=== PATIENT | male | born 1955 | race Caucasian/White ===

== ENCOUNTER → 2017-10-04 | Outpatient (CLI) | payer OTHER ==
[~2017-10-04] MED LIST: GLIMEPIRIDE2 MG PO; IOPAMIDOL 370 MG/ML 200 ML INFUS..BTL INJ ONE; LISINOPRIL10 MG PO; SODIUM CHLORIDE 0.9% 50ML 50 ML ONE
[2017-10-04 08:08] LABS: BLOOD UREA NITROGEN 16 mg/dL (7-26); BUN/CREATININE RATIO 14 (6-25); CREATININE, SERUM 1.15 mg/dL (0.72-1.25); EST GLOMERULAR FILTRATION RATE > 60 ML/MIN (60-)
--- NOTE | 2017-10-04 09:40 | Diagnostic Imaging Report ---
PROCEDURE:CT ANGIOGRAPHY UPPER EXTREMITY WITHOUT AND WITH CONTRAST COMPARISON:None. INDICATIONS:LEFT SUBCLAVIAN STENOSIS TECHNIQUE:After obtaining the patient's consent, CT images were obtained without and with non-ionic intravenous contrast material. Multi-planar reformatted/3-D images were created to optimize visualization of vascular anatomy. CONTRAST:Isovue 370 (100 cc) was administered. FINDINGS: Scattered atherosclerotic calcifications are present in the thoracic and abdominal aorta and great vessels. Visualized portions of the right brachiocephalic, right common carotid and subclavian arteries are patent. Atherosclerotic calcifications are present at the origin of the left subclavian artery. There is calcified and non-calcified plaque at the proximal left subclavian artery near the origin leading to moderate to severe focal stenosis on series 3, images 149-151. The left axillary, brachial, radial and ulnar arteries are patent. The interosseous artery is partially opacified proximally but not opacified distally. Limited evaluation of the hand vasculature due to bolus timing. Arterial supply is patent to the proximal digital arteries but not opacified distally. No acute bony abnormalities. Spinal stimulator device is present in the thoracic spine, incompletely evaluated. S shaped scoliosis of the thoracolumbar spine. CONCLUSION: Atherosclerotic changes of the aorta and great vessels with focal moderate to severe stenosis of the left subclavian artery near the origin. Patent arteries in the left arm. Dictated by: MARIA TERESA GORDON M.D. on 10/04/2017 at 9:45 Electronically approved by: MARIA TERESA GORDON M.D. on 10/04/2017 at 9:45
== END ==
LOC: CT 07:24
PROVIDERS: ATTEND Internal Medicine Interventional Cardiology
DX: I77.9 Disorder of arteries and arterioles, unspecified (principal)
CPT/HCPCS: 36415; 73206; 82565; 84520; Q9967

== ENCOUNTER → 2018-08-13 | Day surgery (SDC) | payer OTHER ==
[2018-08-13] VITALS (8 sets, daily range): BP systolic 112–152; BP diastolic 61–71
[~2018-08-13] VITALS: Ht 180.3 cm; Wt 88.5 kg
[~2018-08-13] MED LIST changes: +ASPIR 8181 MG PO; +ASPIRIN 325 MG TAB ONE; +BENICAR20 MG PO; +FENTANYL CITRATE/PF 100MCG/2 ML INJ ONE; +GABAPENTIN300 MG PO; +HEPARIN SOD (PORCINE) 1000 UNIT/ML 30ML ONE; +HEPARIN SOD/SOD CHLORIDE 2,000 ML ONE; +IOPAMIDOL 300MG/ML 100 ML INFUS..BTL IV ONE; -IOPAMIDOL 370 MG/ML 200 ML INFUS..BTL INJ ONE; +JARDIANCE PO; +KRILL OIL500 MG PO; +LIDOCAINE HCL 2% LOCAL 20 ML VIAL ONE; +MIDAZOLAM HCL 2 MG/2 ML VIAL ONE; +NITROGLYCERIN/D5W 200 MCG/ML 250 ML ONE; +SODIUM CHLORIDE 0.9% 1000ML 1,000 ML ONE; -SODIUM CHLORIDE 0.9% 50ML 50 ML ONE; +TICAGRELOR 90 MG TABLET ONE
--- OUTSIDE RECORDS SUMMARY | 2018-08-13 07:00 | XMS REPORT ---
Author Author [facility] Address Unknown Phone Unavailable Care Team Providers Care Analysis Engineer Name Role Phone TARA MCPHERSON Unavailable Unavailable Problems This patient has no known problems. Allergies, Adverse Reactions, Alerts This patient has no known allergies or adverse reactions. Medications This patient has no known medications. Results Test Description Test Time Test Comments Text Results Atomic Results Result Comments CTA UP EXT W or WOW 2017-10-04 09:45:00 [place] [address] Patient Name: MARINA RAMEY MR #: [id number] : 1955 Age/Sex: 61/M Req #: [id number] Adm Physician: Ordered by: TARA MCPHERSON MD Report #: [id number] Location: CT Room/Bed: Procedure: [id number] CT/CTA UP EXT W or WOW Exam Date: 10/04/17 Exam Time: 0840 REPORT STATUS: Signed PROCEDURE: CT ANGIOGRAPHY UPPER EXTREMITY WITHOUT AND WITH CONTRAST COMPARISON: None. INDICATIONS: LEFT SUBCLAVIAN STENOSIS TECHNIQUE: After obtaining the patient's consent, CT images were obtained without and with non-ionic intravenous contrast material. Multi-planar reformatted/3-D images were created to optimize visualization of vascular anatomy. CONTRAST: Isovue 370 (100 cc) was administered. FINDINGS: Scattered atherosclerotic calcifications are present in the thoracic and abdominal aorta and great vessels. Visualized portions of the right brachiocephalic, right common carotid and subclavian arteries are patent. Atherosclerotic calcifications are present at the origin of the left subclavian artery. There is calcified and non-calcified plaque at the proximal left subclavian artery near the origin leading to moderate to severe focal stenosis on series 3, images 149-151. The left axillary, brachial, radial and ulnar arteries are patent. The interosseous artery is partially opacified proximally but not opacified distally. Limited evaluation of the hand vasculature due to bolus timing. Arterial supply is patent to the proximal digital arteries but not opacified distally. No acute bony abnormalities. Spinal stimulator device is present in the thoracic spine, incompletely evaluated. S shaped scoliosis of the thoracolumbar spine. CONCLUSION: Atherosclerotic changes of the aorta and great vessels with focal moderate to severe stenosis of the left subclavian artery near the origin. Patent arteries in the left arm. Dictated by: MARIA TERESA GORDON M.D. on 10/04/2017 at 9:45 Electronically approved by: MARIA TERESA GORDON M.D. on 10/04/2017 at 9:45 Dictated By: MARIA TERESA GORDON MD Electronically S igned By: MARIA TERESA GORDON MD on 10/04/17944 Transcribed By: ILA on 10/04/1745 COPY TO: TARA MCPHERSON MD
--- OUTSIDE RECORDS SUMMARY | 2018-08-13 07:00 | XMS REPORT | Clinical Summary ---
Author Author [facility] Address Unknown Phone Unavailable Care Team Providers Care Test Baker Name Role Phone Ronn Schulte MD PCP Allergies No Known Allergies Medications End Date Status Medication Sig Dispensed Refills Start Date Active valsartan (DIOVAN) 320 MG Take 320 mg 0 tablet by mouth daily. Active glimepiride (AMARYL) 4 MG Take 4 mg by 0 tablet mouth daily before breakfast. Active gabapentin (NEURONTIN) Take 300 mg 0 300 mg capsule by mouth daily. Active famotidine (PEPCID) 40 MG Take 40 mg by 0 tablet mouth daily. Active aspirin (ECOTRIN) 81 MG Take 81 mg by 0 enteric coated tablet mouth daily. Active Problems Problem Noted Date Hypertension 03/14/2017 Diabetes mellitus 03/14/2017 Family History Medical History Relation Name Comments Cancer Father Heart disease Mother Relation Name Status Comments Brother Father of prostate CA. Mother of CHF. Sister Alive Social History Date Tobacco Use Types Packs/Day Years Used Current Some Day Smoker Cigars 41 Smokeless Tobacco: Never Used Tobacco Cessation: Ready to Quit: No; Counseling Given: Yes Comments: states he smoke cigars since 20 yrs, 4 cigars/week. Recently 2 cigars /week. Alcohol Use Drinks/Week oz/Week Comments Yes stopped drinking in 1994 after diagnosed w/ Hep C.States he was previously drinking vodka and bourbon, 8-10 drinks on weekends. States he quit 1994. Sex Assigned at Date Recorded Not on file Industry Job Start Date Occupation Not on file Not on file Not on file Travel End Travel History Travel Start No recent travel history available. Last Filed Vital Signs Not on file Plan of Treatment Health Maintenance Due Date Last Done Comments DIABETIC RETINAL EYE EXAM 1955 DIABETIC FOOT EXAM 10/21/1963 URINE MICROALBUMIN 10/21/1963 COLONOSCOPY SCREENING 10/21/2003 SHINGLES VACCINES (#1) 10/21/2003 INFLUENZA VACCINE 09/27/2018 Implants Device Identifier Shelf Expiration Date Model / Serial / Lot Implanted Type Area Manufactur er 04/26/2021 [id number] / / [id number] Mesh Hrnia Rpr Parietex Progrip Surgical Left: Inguinal COVIDIEN 12x8cm Resbl Lt - [id number] Mesh or US Implanted: Qty: 1 on 04/20/2017 by Tissue SURGICAL Lokesh Marquez MD [employer] Results Not on fileafter 08/12/2017 Insurance Type Payer Benefit Subscriber ID Effective Phone Address Plan / Dates Group PPO AETNA AETNA PPO xxxxxxxxxx [id number] OPEN resent CHOICE Advance Directives Patient has advance care planning documents on file. For more information, adebayo marcos contact: Blanco [address] [place] [address]
--- NOTE | 2018-08-13 11:00 | Operative Report ---
DATE OF PROCEDURE: 08/13/2018 SURGEON: Dominick Call MD INDICATION: 1. Subclavian artery stenosis. 2. Vertebral steal. PROCEDURES PERFORMED: 1. Selective placement of the catheter within the lateral extremity of the left upper extremity. 2. Third-order catheter placement from the right femoral artery into the left axillary artery. 3. Angioplasty and stent placement in the left subclavian artery. 4. Deployment of right groin Mynx closure device. COMPLICATIONS: None. RECOMMENDATIONS: Dual antiplatelet therapy for at least three months. DESCRIPTION OF PROCEDURE: Access obtained in the right femoral artery. Using a Glidewire, the sheath was extended from the right femoral artery into left axillary artery (third-order catheter placement). 10,000 units of intravenous heparin were administered for anticoagulation. Angiography demonstrated 80% stenosis of the left subclavian artery with retrograde filling of the left subclavian artery. Single 12 x 40 mm LifeStar stent was deployed, (self-expanding) post dilated with a 10 mm balloon, excellent end result, less than 10% residual stenosis. Widely patent vertebral and left internal mammary arteries were noted. No complications encountered. Right groin repaired using Mynx closure device. The patient was discharged home. Dominick Call MD KSB/MODL /[id number]
== END | disposition home or self-care (01) ==
LOC: CATH LAB 06:31
PROVIDERS: ATTEND Internal Medicine Interventional Cardiology
DX: I73.9 Peripheral vascular disease, unspecified (principal); Z82.49 Family history of ischemic heart disease and other diseases of the circulatory system; Z82.3 Family history of stroke; E11.9 Type 2 diabetes mellitus without complications; I10 Essential (primary) hypertension; K76.9 Liver disease, unspecified; I20.8 Other forms of angina pectoris; Z90.49 Acquired absence of other specified parts of digestive tract; Z83.3 Family history of diabetes mellitus; I77.1 Stricture of artery; Z79.84 Long term (current) use of oral hypoglycemic drugs
CPT/HCPCS: 36217; 37236; C1874; 75710; C1725; C1760; C1769; C1876; C1887; J1644; J2001; J2250; J3010; J7030; Q9967